=== PATIENT | female | born 1970 | race Caucasian/White ===

== ENCOUNTER 2024-07-17 17:41 | Emergency (ER) | payer MEDICAID ==
[~2024-07-17] VITALS: Ht 172.7 cm; Wt 70.8 kg
[2024-07-17 17:56] VITALS: BP 143/78; PULSE 91; RESP 14; TEMP 97.7; O2SAT 99
[2024-07-17] MEDS: LIDOcaine 1% W/epiNEPHrine 1:100,000 20ml vial SQ ONE (19:06)
[2024-07-17] MEDS ORDERED: PER5325T PO (21:23)
== END 2024-07-17 21:40 | disposition home or self-care (01) ==
LOC: ER 17:42
DX: S52.501A Unspecified fracture of the lower end of right radius, initial encounter for closed fracture (principal); Z88.6 Allergy status to analgesic agent; Z88.8 Allergy status to other drugs, medicaments and biological substances; W00.0XXA Fall on same level due to ice and snow, initial encounter; Y93.89 Activity, other specified; Y92.89 Other specified places as the place of occurrence of the external cause; Y99.8 Other external cause status
CPT/HCPCS: 29125; 73110; 99284; A6449

== ENCOUNTER 2024-08-02 09:00 | Day surgery (SDC) | payer MEDICAID ==
[2024-08-02] VITALS (19 sets, daily range): BP systolic 83–105; BP diastolic 48–68; PULSE 63–78; RESP 10–17; TEMP 99.3; O2SAT 96–100
[~2024-08-02] VITALS: Ht 172.7 cm; Wt 69.0 kg
[~2024-08-02 09:00] MED LIST: ACET-2119 PO; IBUP-1984 PO; OXYC1TAB17 PO; cefazolin 2gm/D5W 100mL 100 ML IV ONE
[2024-08-02] MEDS ORDERED: ceFAZolin 2gm in dextrose, iso 100 ML IV ONE (09:14)
[2024-08-02] MEDS: ceFAZolin 2gm in dextrose, iso 50 ML IV ONE (09:15)
[2024-08-02] MEDS ORDERED: morphine 4 MG/ML inj SYRINge IV PRN (09:55)
[2024-08-02] MEDS ORDERED: morphine 2 MG/ML inj. syringe IV PRN (09:55)
[2024-08-02] MEDS ORDERED: meperidine/PF 25mg/ml syringe IV PRN ×3 (09:55)
[2024-08-02] MEDS ORDERED: ondansetron/PF 4mg/2ml inj IV PRN (09:55)
[2024-08-02] MEDS ORDERED: ringers solution, lacted 1,000 ML IV SCH (09:55)
[2024-08-02] MEDS ORDERED: proCHLORperazine 10 MG/2 ml inj IV PRN (09:55)
[2024-08-02] MEDS: famotidine 20mg tablet PO ONE (10:16)
[2024-08-02] MEDS: ringers solution, lacted 1,000 ML IV SCH (10:17)
[2024-08-02] MEDS ORDERED: BUPIVAcaine/PF 2.5mg/ml (0.25%) 10ml vial ONE (10:26)
[2024-08-02 10:42] LABS: BASOPHILS # (AUTO) 0.1 X10'3 (0-0.2); BASOPHILS % (AUTO) 1.9 % (0-1); EOSINOPHILS # (AUTO) 0.2 X10'3 (0-0.9); EOSINOPHILS % (AUTO) 4.3 % (0-6); LYMPHOCYTES # (AUTO) 1.3 X10'3 (1.1-4.8); LYMPHOCYTES % (AUTO) 34.8 % (21-51); MEAN CORPUSCULAR HEMOGLOBIN 30.3 PG (27.0-31.0); MEAN CORPUSCULAR HGB CONC 33.7 g/dL (33.0-36.5); MEAN CORPUSCULAR VOLUME 89.9 FL (78-98); MEAN PLATELET VOLUME 8.7 FL (7.4-10.4); MONOCYTES # (AUTO) 0.6 X10'3 (0-0.9); MONOCYTES % (AUTO) 15.9 % (2-12); NEUTROPHILS # (AUTO) 1.6 X10'3 (1.8-7.7); NEUTROPHILS % (AUTO) 43.1 % (42-75); PRE OP HEMOGLOBIN 12.1 g/dL (12.0-16.0); PRE OP PLATELET COUNT 317 X10'3 (140-440); PRE OP WHITE BLOOD COUNT 3.6 10'3 (4.8-10.8); RED BLOOD COUNT 4.01 X10'6 (4.20-5.60); RED CELL DISTRIBUTION WIDTH 13.4 % (11.5-14.5)
[2024-08-02] MEDS ORDERED: midazolam 1 mg/ML 2ml injection ONE (11:00)
[2024-08-02] MEDS ORDERED: sevoflurane 250ml liquid IH ONE (11:00)
[2024-08-02] MEDS ORDERED: fentaNYL/PF 50MCG/1 ML 2ML syringe ONE (11:00)
[2024-08-02 11:38] LABS: ALANINE AMINOTRANSFERASE 25 U/L (12-78); ALBUMIN 3.3 G/DL (3.4-5.0); ALBUMIN/GLOBULIN RATIO 0.9 (1.1-1.5); ALKALINE PHOSPHATASE 134 IU/L (46-116); ANION GAP 6 (8-16); BILIRUBIN,TOTAL 0.3 MG/DL (0.1-1.0); BLOOD UREA NITROGEN 14 MG/DL (7-18); CALCIUM 8.6 MG/DL (8.5-10.1); CHLORIDE 106 MMOL/L (99-107); CREATININE 0.56 MG/DL (0.40-0.90); GLUCOSE 87 MG/DL (70-104); SODIUM 142 MMOL/L (135-145); TOTAL CARBON DIOXIDE 29.7 MMOL/L (24-32); TOTAL PROTEIN 6.9 G/DL (6.4-8.2); eCRCL 108 ML/MIN; eGFR > 90 ML/MIN
[2024-08-02] MEDS ORDERED: ROPIVAcaine 0.5% (5mg/ml) 30ml vial ONE (12:07)
[2024-08-02] MEDS ORDERED: propofol inj 20 ML IV ONE (12:07)
[2024-08-02 12:12] LABS: ASPARTATE AMINO TRANSFERASE 26 U/L (10-37); POTASSIUM 3.9 MMOL/L (3.5-5.1)
== END 2024-08-02 15:09 | disposition home or self-care (01) ==
LOC: PAS 09:00
PROVIDERS: ATTEND Orthopaedic Surgery Hand Surgery
DX: S52.571A Other intraarticular fracture of lower end of right radius, initial encounter for closed fracture (principal); F41.9 Anxiety disorder, unspecified; Z79.899 Other long term (current) drug therapy; Z98.890 Other specified postprocedural states; Z87.891 Personal history of nicotine dependence; H54.7 Unspecified visual loss; Z90.49 Acquired absence of other specified parts of digestive tract; Z88.8 Allergy status to other drugs, medicaments and biological substances; G89.18 Other acute postprocedural pain
CPT/HCPCS: 25609; 36415; 64417; 80053; 82948; 85025; C1713; J0690; J2250; J2704; J2795; J3010; J3490; J7030; J7120; Z7506; Z7508; Z7512; A4215; A4565; A4618; A6449; A7000